=== PATIENT | female | born 1985 | race Two or more races ===

== ENCOUNTER 2020-05-07 18:15 | Emergency (ER) | payer MEDICAID, OTHER ==
[~2020-05-07] VITALS: Ht 154.9 cm; Wt 79.4 kg
[2020-05-07 18:35] VITALS: BP 150/76
[2020-05-08] MEDS ORDERED: LORazepam 0.5 MG TAB PO ONE
[2020-05-08] MEDS ORDERED: methylPREDNISolone SOD SUCC 125 MG/2 ML VL IM ONE
== END 2020-05-08 01:04 | disposition home or self-care (01) ==
LOC: ER 18:15
DX: R09.89 Other specified symptoms and signs involving the circulatory and respiratory systems (principal); J45.909 Unspecified asthma, uncomplicated
CPT/HCPCS: 72125; 96372; 99284; J2930